=== PATIENT | male | born 1970 ===

== ENCOUNTER → 2021-04-06 10:32 | Outpatient (BNVA) | payer OTHER, SELFPAY | PROVIDERS: Visit Provider Surgery Vascular Surgery ==

== ENCOUNTER 2021-05-02 07:32 | Outpatient (REF) | payer OTHER, SELFPAY ==
--- NOTE | ~2021-05-02 | US_ITS ---
EXAMINATION: BILATERAL LOWER EXTREMITY VENOUS ULTRASOUND (Reflux Exam) CLINICAL INDICATION: This is a 50-year-old male with varicose veins. Venous insufficiency. COMPARISON: None. TECHNIQUE: Color flow triplex imaging and compression Doppler was performed to evaluate both the deep and the superficial systems bilaterally. To evaluate the superficial system, the examination was performed in the upright position. Color-flow Doppler ultrasound and compression ultrasound were utilized. In addition, maneuvers were utilized to demonstrate reflux. FINDINGS: 1. DEEP VENOUS ULTRASOUND OF THE RIGHT LOWER EXTREMITY: Common Femoral Vein: Compressible, normal respiratory variation and augmented flow. Femoral vein: Compressible, normal color flow and augmentation. Popliteal Vein: Compressible, normal augmentation. Deep Reflux: There is no evidence of reflux in the deep system in either the common femoral vein or the popliteal vein. . There is no evidence of a Pedroza's cyst. 2. SUPERFICIAL ULTRASOUND WITH DOPPLER OF RIGHT LOWER EXTREMITY GREAT SAPHENOUS VEIN: Saphenofemoral junction: 0.5 cm. There is no reflux at the junction. Mid thigh: 0.4 cm. The reflux time is 3304 ms. Above knee: 0.7 cm. The reflux time is 3444 ms. Below knee: 0.1 cm. There is no reflux. Mid calf: 0.2 cm. The reflux time is 2736 ms. Ankle: 0.3 cm. The reflux time is 688 ms. GSV REFLUX: There is isolated reflux within the great saphenous vein but not at the junction. DUPLICATED GREAT SAPHENOUS VEIN: There is a 0.2 cm duplicated lateral great saphenous vein without reflux. SMALL SAPHENOUS VEIN: Upper: 0.6 cm Lower: 0.1 cm SSV REFLUX: No evidence of reflux. VEIN OF GIACOMINI: None Imaged. PERFORATORS: None Imaged VARICOSITIES: There are varicose veins at the knee measuring 0.5 cm with 3332 ms of reflux to 3. DEEP VENOUS ULTRASOUND OF THE LEFT LOWER EXTREMITY: Common Femoral Vein: There is reflux in the common femoral vein of 1204 ms. Femoral vein: Compressible, normal color flow and augmentation. There is no reflux. Popliteal Vein: Compressible, normal augmentation. There is no reflux. Deep Reflux: There is evidence of reflux in the deep system in either the common femoral vein There is no evidence of a Pedroza's cyst. 4. SUPERFICIAL ULTRASOUND WITH DOPPLER OF LEFT LOWER EXTREMITY GREAT SAPHENOUS VEIN: Saphenofemoral junction: 1.0 cm. There is no reflux at the junction. Mid thigh: 0.6 cm. The reflux time is 2796 ms per Above knee: 0.8 cm. The reflux time is 3180 ms. Below knee: 0.6 cm. The reflux time is 2880 ms. Mid calf: 0.3 cm. The reflux time is 2500 ms. Ankle: 0.4 cm. The reflux time is 3100 ms per GSV REFLUX: There is isolated reflux in the great saphenous vein but not at the saphenofemoral junction. DUPLICATED GREAT SAPHENOUS VEIN: There is a 0.2 cm medial duplicated great saphenous vein without evidence of reflux. SMALL SAPHENOUS VEIN: Upper: 0.8 cm Lower: 0.2 cm SSV REFLUX: No evidence of reflux. VEIN OF GIACOMINI: None Imaged. PERFORATORS: None Imaged VARICOSITIES: There are 0.4 cm varicose veins in the mid calf with 2780 ms of reflux. There are 0.3 cm varicose veins at the knee with 2316 ms of reflux. There are 1.1 cm varicose veins at the knee with 2040 ms of reflux. There are 0.8 cm proximal calf varicose veins with 2932 ms of reflux. US/US venous duplex LE BI IMPRESSION: 1. There is a patent right great saphenous vein without evidence of reflux at the saphenofemoral junction. There is isolated reflux below this level. 2. There is a patent right small saphenous vein without evidence of reflux at the junction. 3. There is a patent left great saphenous vein without evidence of reflux at the saphenofemoral junction. There is isolated reflux below this level. 4. There is a patent left small saphenous vein without evidence of reflux. 5. There are bilateral varicose veins with reflux as noted.
== END 2021-05-02 07:33 | disposition home or self-care (01) ==
LOC: HO.US 07:32
PROVIDERS: Visit Provider Surgery Vascular Surgery
DX: I83.12 Varicose veins of left lower extremity with inflammation (principal); I83.893 Varicose veins of bilateral lower extremities with other complications
CPT/HCPCS: 93970

== ENCOUNTER → 2021-05-04 09:39 | Outpatient (BNVA) | payer OTHER, SELFPAY | PROVIDERS: Visit Provider Surgery Vascular Surgery ==

== ENCOUNTER → 2021-06-02 09:44 | Outpatient (BNVA) | payer OTHER, SELFPAY | PROVIDERS: Visit Provider Surgery Vascular Surgery | DX: I83.12 Varicose veins of left lower extremity with inflammation (principal) | CPT/HCPCS: 36475 ==

== ENCOUNTER 2021-06-05 14:57 | Outpatient (REF) | payer OTHER, SELFPAY ==
--- NOTE | ~2021-06-05 | US_ITS ---
EXAMINATION: US VENOUS ULTRASOUND WITH DOPPLER LOWER EXTREMITY, LEFT CLINICAL INFORMATION: Post RFA. Rule out DVT. COMPARISON: Previous exam April 2021 TECHNIQUE: Ultrasound of the deep veins is performed from the hip to the calf with compression sonography and color and pulse Doppler assessment. Spectral analysis with color-flow imaging is performed. FINDINGS: There is normal venous compression and respiratory variation and augmented flow. The visualized common femoral vein, superficial femoral vein, profunda femoral vein, popliteal vein, and the trifurcation region shows no evidence of deep venous thrombosis. The greater saphenous vein appears thrombosed in the thigh down to the knee. This extends 1.7 cm from the saphenofemoral junction. There is no Pedroza's cyst. US/US venous duplex LE LT IMPRESSION: No DVT demonstrated in the left lower extremity.
== END 2021-06-05 14:58 | disposition home or self-care (01) ==
LOC: HO.US 14:57
PROVIDERS: Visit Provider Surgery Vascular Surgery
DX: M79.604 Pain in right leg (principal); M79.605 Pain in left leg
CPT/HCPCS: 93971

== ENCOUNTER → 2021-06-15 09:04 | Outpatient (BNVA) | payer OTHER, SELFPAY | PROVIDERS: Visit Provider Surgery Vascular Surgery ==

== ENCOUNTER → 2021-07-21 09:39 | Outpatient (BNVA) | payer OTHER, SELFPAY | PROVIDERS: Visit Provider Surgery Vascular Surgery | DX: I83.11 Varicose veins of right lower extremity with inflammation (principal) | CPT/HCPCS: 36482 ==

== ENCOUNTER 2021-07-24 15:04 | Outpatient (REF) | payer OTHER, SELFPAY ==
--- NOTE | ~2021-07-24 | US_ITS ---
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 COMPARISON: None TECHNIQUE: Ultrasound of the deep veins is performed from the hip to the calf with compression sonography and color and pulse Doppler assessment. Spectral analysis with color-flow imaging is performed. FINDINGS: There is normal venous compression and respiratory variation and augmented flow. The visualized common femoral vein, superficial femoral vein, profunda femoral vein, popliteal vein, and the trifurcation region shows no evidence of deep venous thrombosis. There is no significant popliteal fossa cyst. The great saphenous vein appears to be occluded. There is a 1.98 cm segment of patent great saphenous vein below the common femoral vein junction. There is no extension into the saphenofemoral femoral junction. US/US venous duplex LE RT IMPRESSION: 1. No DVT demonstrated in the right lower extremity. 2. There is no extension of thrombus from the occluded great saphenous vein into the deep venous system.
== END 2021-07-24 15:05 | disposition home or self-care (01) ==
LOC: HO.US 15:04
PROVIDERS: Visit Provider Surgery Vascular Surgery
DX: M79.604 Pain in right leg (principal)
CPT/HCPCS: 93971

== ENCOUNTER → 2021-08-10 09:08 | Outpatient (BNVA) | payer OTHER, SELFPAY | PROVIDERS: Visit Provider Surgery Vascular Surgery ==